=== PATIENT | male | born 1965 | race Caucasian/White ===

== ENCOUNTER 2019-04-29 12:31 | Outpatient (CLI) | payer MEDICARE, MEDICAID, SELFPAY ==
--- NOTE | ~2019-04-29 | CT_ITS ---
EXAMINATION: CT chest abdomen pelvis wo con EXAM DATE: 04/29/2019 13:26 INDICATION: Abnormal weight loss. Colonic polyps. TECHNIQUE: Spiral CT of the chest, abdomen and pelvis was performed without contrast. Axial, kimbrough l and sagittal images were reviewed. Coronal maximum intensity pixel images of chest reviewed. The dose-length product (DLP) for this examination was 1139.47 mGy-cm. The exposure was tailored accordi ng to patient size (auto mA exposure control), and iterative reconstruction (ASIR) was used as additi onal dose reduction technique. Comparison is made to prior examination from 08/28/2013. FINDINGS: CHEST: Pleural-based nodule in the right middle lobe measuring about 7 mm average dimension, probabl y postinfectious but recommend 6 month follow-up low-dose chest CT. There are no pleural or pericard ial effusions. Some small opacities in the dependent aspect of the trachea probably mucous/debris. There is no mediastinal, hilar or axillary lymphadenopathy. There is no pneumothorax. Heart norm al in size. No evidence of coronary arterial calcification. ABDOMEN PELVIS: Mild generalized subcutaneous fat stranding. The liver, spleen, adrenal glands and p ancreas are unremarkable. Possible poorly calcified cholelithiasis. There is no nephrolithiasis or hydronephrosis. The prostate is unremarkable. The bladder is unremarkable. There is no retroperit gotti or pelvic lymphadenopathy. There is mild scattered arteriosclerotic disease. The appendix is normal. There are surgical changes from intact gastric bypass surgery. There is mod erate amount of colonic stool. No free intraperitoneal gas. There are no osteoblastic or osteolyt ic lesions identified. L5-S1 fusion hardware. IMPRESSION: 1. Small right middle lobe nodule likely postinfectious; recommend 6 month follow-up low-dose chest CT. 2. Possible poorly calcified cholelithiasis. Reviewed, dictated and finalized at location A. [employer] IMPRESSION: 1. Small right middle lobe nodule likely postinfectious; recommend 6 month fol low-up low-dose chest CT. 2. Possible poorly calcified cholelithiasis.
[2019-04-29 14:27] LABS: Hematocrit 35.1 % (42.0-52.0); Hemoglobin 11.2 g/dL (14.0-18.0); Mean Corpuscular HGB Conc 31.9 g/dl (32-36); Mean Corpuscular Hemoglobin 29.7 pg (26-34); Mean Corpuscular Volume 93.1 fl (80-100); Mean Platelet Volume 11.1 fl (7.4-10.4); Platelet Count Result 221 k/mm3 (150-375); Red Blood Count 3.77 M/mm3 (4.6-6.20); Red Cell Distribution Width 13.2 % (11.5-14.5)
[2019-04-29 14:44] LABS: Alanine Aminotransferase 20 U/L (4-50); Albumin Level 2.9 g/dL (3.5-5.1); Alkaline Phosphatase 35 U/L (38-126); Aspartate Amino Transferase 31 U/L (17-59); Bilirubin,Total 0.3 mg/dL (0.2-1.3); CRP 0.9 mg/dL (<1.0); Uric Acid 3.2 mg/dL (3.5-8.5)
[2019-04-29 15:11] LABS: Carcinoembryonic Antigen 2.9 ng/mL (0.0-3.0)
[2019-04-29 15:45] LABS: Folic Acid 14.8 ng/mL (2.76->20)
[2019-05-03 12:43] LABS: Testosterone Free 27.6 pg/mL (35.0-155.0); Testosterone Total 438 ng/dL (250-1100)
== END 2019-04-29 12:32 | disposition home or self-care (01) ==
PROVIDERS: PCP Internal Medicine; Visit Provider Internal Medicine
DX: R63.4 Abnormal weight loss (principal); Z86.010 Personal history of colon polyps; Z87.898 Personal history of other specified conditions; R91.8 Other nonspecific abnormal finding of lung field
CPT/HCPCS: 36415; 71250; 74176; 80076; 82378; 82607; 82746; 83735; 84402; 84403; 84550; 85027; 86140

== ENCOUNTER 2019-10-19 06:45 | Outpatient (NON) | payer MEDICARE, MEDICAID, SELFPAY ==
[2019-10-19 19:34] LABS: SARS-CoV-2 RNA PCR Negative
== END 2019-10-19 06:46 ==
PROVIDERS: PCP Internal Medicine; Visit Provider Internal Medicine
DX: R68.89 Other general symptoms and signs (principal); Z20.828 Contact with and (suspected) exposure to other viral communicable diseases
CPT/HCPCS: 87635; C9803; U0003

== ENCOUNTER 2020-05-16 13:40 | Outpatient (RCR) | payer MEDICARE, MEDICAID, SELFPAY ==
--- NOTE | 2020-05-16 15:15 | PTOPEVAL ---
PHYSICAL THERAPY EVALUATION AND PLAN OF CARE 05-16-20 Thank you for referring Jaskaran Patel Jr. to [facility], for the diagnosis of vestibular rehab/BPPV.? He is scheduled to be seen for therapy? 2 x/week for 4 weeks. Please review, sign, date and return this plan of care DORIS. I agree with and certify that the following plan of care is medically necessary. Referring Physician Date Attending Provider: Dong Martin MD *PT Outpatient Evaluation Document 05/16/20 14:00 CRISPIN (Rec: 05/16/20 15:14 CRISPIN [id number]) Outpatient Past Medical History Past Medical History Source of Past Medical History Family/Significant Other Neurological History Hx Transient Ischemic Attacks (TIA) Yes: 16 x Hx Other Neurological Disorders Yes: vertigo whole life ; fibromyalgia,neuopathy B LE's Cardiovascular History Hx Congestive Heart Failure Yes Hx Hypercholesterolemia Yes: meds Respiratory History Hx Chronic Obstructive Pulmonary Disease Yes (COPD) Hx Emphysema Yes Hx Sleep Apnea Yes: BIPAP for sleeping Hx Other Respiratory Disorders Yes: previous smoker, stopped 2012 Gastrointestinal History Hx Gastric Bypass Surgery Yes: since surgery--CHF, diabetes resolved Genitourinary History Hx Genitourinary Disorders No Significant History Musculoskeletal History Hx Back Pain Yes Hx Orthopedic Surgery Yes: L 5th toe amputation Hx Spinal Surgery Yes: lumbar fusion Lumbar, bone stimulator Hx Other Musculoskeletal Disorders Yes: B finger tightness/ trigger fingers Endocrine History Hx Diabetes Yes: history resolved since gastric bypass Hx Hyperthyroidism Yes Hx Other Endocrine Disorders Yes: sometimes blood sugar too low- pass out HEENT History Hx Other HEENT Disorders Yes: glasses-problems with glasses-regular & bifocal Psychosocial History Hx Anxiety Yes: has therapy dog Grace Hx Depression Yes Hx Post Traumatic Stress Disorder Yes: reacts with unexpected approach from behind him Pain History Has Past Pain Affected Your Daily Life Yes History of Long-Term Prescription Pain Yes: on morphine due to back Medication Use (Opiates) pain Other History Hx Other Medical Conditions Yes: early onset dementia- on meds Evaluation Information Problem Diagnosis BPPV/vestibular rehab Onset April 2019 Prior Level of Function Activity Level (Last 3 Months) Occupation not working/ disabled Activity
--- NOTE | 2020-05-20 13:51 | PCPTNOTE ---
Patient did not show up for scheduled appointment this date. Called and had to leave a message.
--- NOTE | 2020-05-25 15:52 | PCPTNOTE ---
pt did not show for today's appt; called and talked with his , she stated she has a hemorrhage in her eye and cannot see to drive; reminder her of next appt; she stated she will call if he is not able to attend that appt;
--- NOTE | 2020-05-31 14:54 | PCPTNOTE ---
Patient did not show up for scheduled appointment this date. Called and left a message, that per our policy, he will be discharged, and will need new orders for further therapy.
--- NOTE | 2020-06-20 13:26 | PCPTNOTE ---
PHYSICAL THERAPY DISCHARGE 06-20-20 : Attending Provider: Dong Martin MD Patient:Jaskaran Patel Jr. Date of :1965 Jaskaran has not returned for any further treatments since the evaluation on 05/16/2020, for the diagnosis of BPPV. Therefore he will be discharged at this time. The goals were not assessed. Thank you for referring Jaskaran to [facility]. Please review, sign, date and return this discharge summary DORIS. I have been updated about the patient's current status and I agree with discharge from the above service at this time. Referring Physician Date
== END 2020-06-21 09:06 | disposition home or self-care (01) ==
LOC: ANHPT 13:40
PROVIDERS: PCP Internal Medicine; Referring Provider Otolaryngology; Visit Provider Otolaryngology
DX: H81.10 Benign paroxysmal vertigo, unspecified ear (principal)
CPT/HCPCS: 97161

== ENCOUNTER 2020-05-30 12:54 | Outpatient (CLI) | payer MEDICARE, MEDICAID, SELFPAY | END 2020-05-30 12:55 | disposition home or self-care (01) | PROVIDERS: PCP Internal Medicine; Visit Provider Otolaryngology | DX: H91.90 Unspecified hearing loss, unspecified ear (principal); H69.83 Other specified disorders of Eustachian tube, bilateral | CPT/HCPCS: 92557; 92567 ==

== ENCOUNTER 2020-06-27 11:30 | Outpatient (RCR) | payer MEDICAID, SELFPAY | END 2020-09-11 23:59 | disposition home or self-care (01) | LOC: ANHAUDASC 11:30 | PROVIDERS: PCP Internal Medicine; Visit Provider Otolaryngology | DX: Z46.1 Encounter for fitting and adjustment of hearing aid (principal) | CPT/HCPCS: 99199; V5160; V5261 ==

== ENCOUNTER 2020-08-01 19:28 | Emergency (ER) | payer MEDICARE, MEDICAID, SELFPAY ==
[2020-08-01 19:34] VITALS: BP 167/106; PULSE 100; RESP 18; TEMP 36.3; O2SAT 97
[2020-08-01 19:48] LABS: Basophils Absolute Auto 0.2 K/mm3 (0.0-0.1); Basophils Percent Auto 1.8 % (0.2-1.2); Eosinophils Absolute Auto 0.3 K/mm3 (0-0.3); Eosinophils Percent Auto 2.9 % (0-4.4); Hematocrit 45.1 % (42.0-52.0); Hemoglobin 15.1 g/dL (14.0-18.0); Immature Granulocyte Absolute 0.03 K/mm3 (0.00-0.031); Immature Granulocyte Percent A 0.3 % (0-0.5); Lymphocytes Absolute Auto 2.79 K/mm3 (0.9-3.2); Mean Corpuscular HGB Conc 33.5 g/dl (32-36); Mean Corpuscular Hemoglobin 28.3 pg (26-34); Mean Corpuscular Volume 84.6 fl (80-100); Mean Platelet Volume 11.6 fl (7.4-10.4); Monocytes Absolute Auto 0.9 K/mm3 (0.1-0.6); Monocytes Percent Auto 7.9 % (2.6-8.5); Neutrophils Absolute Auto 6.6 K/mm3 (1.3-6.7); Neutrophils Percent Auto 61.1 % (45.5-73.1); Platelet Count Result 251 k/mm3 (150-375); Red Blood Count 5.33 M/mm3 (4.6-6.20); Red Cell Distribution Width 12.9 % (11.5-14.5); White Blood Count 10.8 K/mm3 (4.5-10.0)
[2020-08-01 19:58] LABS: Alanine Aminotransferase 25 U/L (4-50); Albumin Level 4.7 g/dL (3.5-5.1); Alkaline Phosphatase 76 U/L (38-126); Anion Gap 11 mmol/L (8-16); Aspartate Amino Transferase 28 U/L (17-59); Bilirubin,Total 0.5 mg/dL (0.2-1.3); Blood Urea Nitrogen 10 mg/dL (9-20); Calcium 9.8 mg/dL (8.4-10.2); Carbon Dioxide 24 mmol/L (22-30); Chloride 104 mmol/L (98-107); Estimated CRCL calculation 123 ml/min; Estimated Glomerular Filt Rate > 60; Glucose 200 mg/dL (75-110); Lipase 104 U/L (23-300); Potassium 4.2 mmol/L (3.4-5.0); Sodium 139 mmol/L (137-145)
[2020-08-01 20:33] LABS: Add Urine Microscopic? YES; Appearance Urine Clear (Clear); Bilirubin Urine Negative (Negative); Blood Urine Negative (Negative); Color Urine Yellow (Yellow); Glucose Urine UA 3+ mg/dL (Negative); Ketones Urine Negative (Negative); Leukocyte Esterase Ur Negative LEU/UL (Negative); Nitrate Urine Negative (Negative); Protein Urine Negative (Negative); RBC Urine 0-2 /hpf (0-2); Specific Grav Ur 1.007 (1.001-1.035); Urobilinogen Urine Negative mg/dL (<2.0); WBC Urine 0-3 /hpf
[2020-08-01 21:21] VITALS: BP 146/85; PULSE 95; RESP 24; O2SAT 100
[2020-08-01] MEDS: SODIUM CHLORIDE 0.9% IV 1,000 ML 999 ML IV CONT (23:35)
[2020-08-01] MEDS: PROCHLORPERAZINE EDISYLATE 10 MG/2 ML VIAL 5 MG IV PUSH (23:37)
[2020-08-01] MEDS: MORPHINE SULFATE (*CRX) 4 MG/ML INJ IV PUSH (23:41)
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
[2020-08-01 23:53] VITALS: BP 138/85; PULSE 67; RESP 20; TEMP 36.7; O2SAT 98
[2020-08-01 23:54] VITALS: PULSE 67
--- NOTE | 2020-08-02 00:39 | ED.GENADULT ---
HPI - General Adult General Chief complaint: Unspecified Stated complaint: morphine withdrawl Time Seen by Provider: 08/01/20 23:12 Source: patient and family Mode of arrival: ambulatory Limitations: no limitations History of Present Illness HPI narrative: 54-year-old with a history of diabetes chronic back problems was on morphine 90 mg daily for last 9 years, ran out of his medication yesterday. He states that his primary doctor who used to prescribe morphine just tired and will not refill medication. He is states that he has seen Dr. Lopez who would not prescribe him morphine. Patient states that he is unable to rest because withdrawal. Onset (ago): day(s) (1) Location: back and abdomen Severity: moderate Quality: aching and other (Cramping) Pain Consistency: constant Exacerbating factors: none Associated symptoms: malaise Treatments prior to arrival: none Related Data Allergies Allergy/AdvReac Type Severity Reaction Status Date / Time codeine Allergy Severe itching Verified 06/06/20 13:36 hydrocodone Allergy Severe ITCHING Verified 06/06/20 13:36 erythromycin base Allergy Intermediate Rash Verified 06/06/20 13:36 fluticasone Allergy Intermediate Jittery Verified 06/06/20 13:36 salmeterol Allergy Intermediate Jittery Verified 06/06/20 13:36 OXYCODONE HCL Allergy Severe ITCHING Uncoded 06/06/20 13:36 SALMETEROL XINAFOATE Allergy Severe MOOD SWINGS Uncoded 06/06/20 13:36 FLUTICASONE PROPIONATE AdvReac Severe MOOD SWINGS Uncoded 06/06/20 13:36 Review of Systems Review of Systems: All systems reviewed & are unremarkable except as noted in HPI and below Constitutional: Constitutional: Reports no additional constitutional complaints Eyes: Eyes: Reports no additional eye complaints ENT: Reports system reviewed and no additional complaints, except as documented Cardiovascular: Cardiovascular: Reports no additional cardiovascular complaints Respiratory: Respiratory: Reports no additional respiratory complaints Gastrointestinal: Gastrointestinal: Reports as per HPI Musculoskeletal: Musculoskeletal: Reports as per HPI Neurologic: Reports system reviewed and no additional complaints, except as documented PMFSH Past Medical History Medical History Amputation toe (~2018) Blurred vision Bowel habit changes Chronic headaches Constipation Diarrhea Difficulty swallowing Dizziness Double vision Ear ache Ear discharge Excessive hunger Excessive thirst Fainting Forgetfulness Hernia Insomnia Oral herpes simplex infection Pneumonia Rectal bleeding Surgical History Surgical History History of ear surgery Patient has had approx. 28 ear surgeries since the age of [age] History of gastric bypass (~07/2013) History of hernia repair (~07/2013) History of rectal sphincterotomy History of spinal fusion (~2008) Hx of removal of cyst Status post repair of paraesophageal diaphragmatic hernia (~07/2013) Family History Family History Father Hypertension Grandparent Hypertension Family history of malignant neoplasm of breast Mother Hypertension Depression Thyroid disorder Other Carcinoma of colon Family history of coronary artery disease Social History Social History Social History: Patient drinks caffeine daily Smoking packs per day: 3 Smoking cigarettes per day: 60.0 Smoking status: Former smoker Tobacco type: cigarettes Second hand tobacco smoke exposure: No Smoking end date: 11/25/12 Alcohol intake: never Substance use: current Substance use type: marijuana Gender identity (if verbalized by the patient): Male Exam Narrative: Exam Narrative: GENERAL: Well-appearing, well-nourished, and in no acute distress. HEAD: Normocephalic, atraumatic. EYES: PERRLA and EOMI. ENT:
[2020-08-02 00:44] VITALS: BP 127/65; PULSE 66; RESP 18; TEMP 36.7; O2SAT 98
== END 2020-08-02 00:51 | disposition home or self-care (01) ==
PROVIDERS: Emergency Medicine; Emergency Provider Family Medicine; PCP Emergency Medicine
DX: F11.23 Opioid dependence with withdrawal (principal); M54.9 Dorsalgia, unspecified; G89.29 Other chronic pain; E11.9 Type 2 diabetes mellitus without complications; Z98.84 Bariatric surgery status; Z98.1 Arthrodesis status; Z87.891 Personal history of nicotine dependence; Z87.01 Personal history of pneumonia (recurrent); Z89.429 Acquired absence of other toe(s), unspecified side
CPT/HCPCS: 36415; 80053; 81001; 83690; 85025; 96361; 96374; 96375; 99284; J0780; J2270; J7030

== ENCOUNTER 2021-09-14 08:29 | Outpatient (CLI) | payer MEDICARE, MEDICAID, SELFPAY ==
--- NOTE | 2021-10-03 21:35 | WPDSLEEPSTUD ---
Sleep Study Date of Study: 09/14/21 Ordering Provider: Kaci Blanco MD Interpreting Physician: Charmaine Barrera DO Sleep Study Type: Polysomnogram Height: 1.7 m Weight: 97.069 kg Body Mass Index: 33.5 Neck Circumference (inches): 17 [place]: 23 Reason for Sleep Study Previously diagnosed with NOE and is on BPAP with oxygen. Needs new supplies. Sleep History The patient is a 55-year-old male with bipolar disorder, PTSD COPD, diabetes, chronic back pain w/stimulator, history of tobacco use and NOE that had a sleep study ordered by his inspector precision to requalify for PAP therapy. He is currently on Suboxone therapy. He occasionally awakens from sleep short of breath. He rarely awakens at night with heartburn, belching or cough. He occasionally snores loud enough that others complain. He occasionally has trouble sleeping when he has a cold. He occasionally wakes up gasping for air throughout the night. He occasionally has breathing problems at night observed by himself or others. He occasionally sweats excessively at night. He occasionally has heart palpitations or irregular heartbeats during the night. He constantly falls asleep during the day and constantly falls asleep while driving. He denies sleep paralysis, cataplexy and hypnagogic / hypnopompic hallucinations. He denies having trouble at school or work due to sleepiness. He occasionally has nightmares and occasionally remembers his dreams. He occasionally has thoughts racing through his mind. He occasionally feels sad or depressed. He occasionally has anxiety. He constantly has muscular tension. He denies noticing parts of his body jerk. He denies kicking during the night. He denies having crawling and aching feelings in his legs. He occasionally has leg pain during the night. He denies grinding his teeth during sleep awakening with morning jaw pain. He is constantly bothered by pain during the day and constantly awakened by pain during the night. He constantly wakes up feeling stiff morning. He constantly wakes up with sore achy muscles. He constantly wakes up with pain in the neck, spine and other joints. He goes to bed by 10:00 p.m. on both weekdays and weekends. He sleeps will fall asleep within 30 minute. He wakes up twice throughout the night for unknown reasons. He is able to fall back asleep within 30 minutes. He wakes up at 9:00 a.m. on both weekdays and weekends. He is unsure how many hours of sleepy gets per night. He will stay in bed for 30 minutes after waking up in the morning. He currently lives with his and adult son. He does not consume any caffeinated beverages within 2 hours of bedtime. He does not engage in physical exercise before bedtime. He will read watch television before falling asleep. He will take naps in the afternoon or the evening but they are not refreshing. He drinks 2 cups of caffeinated beverage per day. He is a former smoker. He denies alcohol use. He does use marijuana currently. *The patient states that he sometimes hits in his sleep and acts out his dreams. He is also on a benzodiazepine for restless legs.* [facility] Past Medical History Medical History Amputation toe (~2017) Blurred vision Bowel habit changes Chronic headaches Constipation Diarrhea Difficulty swallowing Dizziness Double vision Ear ache Ear discharge Excessive hunger Excessive thirst Fainting Forgetfulness Hernia Insomnia Obstructive sleep apnea Oral herpes simplex infection Pneumonia Rectal bleeding Surgical History Surgical History History of ear surgery Patient has had approx. 28 ear surgeries since the age of [age] History of gastric bypass (~07/2013) History of hernia repair (~07/2013) History of rectal sphincterotomy History of spinal fusion (~2008) Hx of removal of cyst Status post repair of paraesophageal
[2021-10-04 05:30] VITALS: BMI 33.5
--- NOTE | 2021-10-25 11:15 | SLEEP ---
pt has not followed up with md. Advised pt to call md to follow up.
== END 2021-09-15 07:42 | disposition home or self-care (01) ==
LOC: ANHCSM 08:49
PROVIDERS: PCP Hospitalist; Visit Provider Internal Medicine Critical Care Medicine
DX: G47.33 Obstructive sleep apnea (adult) (pediatric) (principal)
CPT/HCPCS: 95810